=== PATIENT | female | born 1970 | race Caucasian/White ===

== ENCOUNTER 2017-09-05 09:02 | Outpatient (CLI) | payer OTHER | END 2017-09-05 09:03 | disposition home or self-care (01) | LOC: BICMAMMO 09:02 | PROVIDERS: ATTEND Family Medicine | DX: Z12.31 Encounter for screening mammogram for malignant neoplasm of breast (principal); M85.852 Other specified disorders of bone density and structure, left thigh; Z80.3 Family history of malignant neoplasm of breast; N63.20 Unspecified lump in the left breast, unspecified quadrant | CPT/HCPCS: 77063; 77067; 77080 ==

== ENCOUNTER 2017-09-11 12:53 | Outpatient (CLI) | payer OTHER | END 2017-09-11 12:54 | disposition home or self-care (01) | LOC: BICMAMMO 12:53 | PROVIDERS: ATTEND Family Medicine | DX: N63.20 Unspecified lump in the left breast, unspecified quadrant (principal); R92.1 Mammographic calcification found on diagnostic imaging of breast | CPT/HCPCS: 77066; G0279 ==

== ENCOUNTER 2018-03-25 08:12 | Outpatient (CLI) | payer OTHER ==
--- NOTE | 2018-03-25 11:08 | ULT ---
LEFT BREAST ULTRASOUND: HISTORY: This 47-year-old female returns for six-month followup of a mass in the left breast. COMPARISON: Digital mammography from 03/25/2018. Prior ultrasound examination from 09/11/2017. FINDINGS: There is a stable circumscribed, anechoic probable cyst in the left breast, at 12 o'clock, 3 cm from the nipple, measuring approximately 0.4 x 0.8 x 0.8 cm in size. This is stable from the prior ultras ound. The circumscribed mass in the 12 o'clock position of the left breast, seen on the mammogram, i s stable. IMPRESSION: BI-RADS category 3-Probably benign findings. Six-month follow-up bilateral diagnostic mammogram is recommended. If this mass remains stable, as e xpected, the patient could probably proceed to annual mammography, after the next six-month followup. POS: OFF
== END 2018-03-25 08:13 | disposition home or self-care (01) ==
LOC: BICMAMMO 08:12
PROVIDERS: ATTEND Family Medicine
DX: N63.20 Unspecified lump in the left breast, unspecified quadrant (principal); N63.10 Unspecified lump in the right breast, unspecified quadrant; Z80.3 Family history of malignant neoplasm of breast
CPT/HCPCS: G0279

== ENCOUNTER 2018-04-19 08:45 | Emergency (ER) | payer OTHER ==
[2018-04-19] MEDS ORDERED: Morphine 4 MG/ML VIAL ONE (09:10)
[2018-04-19 10:03] LABS: #Basophils 0.1 thou/uL (0.0-0.2); #Lymphocytes 0.7 thou/uL (1.20-3.40); #Monocytes 0.1 thou/uL (0.11-0.59); %Basophils 1.1 % (0.0-1.0); %Eosinophils 0.6 % (0.0-10.0); %Lymphocytes 12.1 % (21.0-51.0); %Monocytes 1.2 % (0.0-10.0); %Neutrophils 85.1 % (42.0-75.0); Hemoglobin 12.3 g/dL (12.0-16.0); MDiff Complete? YES; Macrocytosis SLIGHT = 6-15 cells (100X) (0-5/hpf); Mean Corpuscular HGB CONC 33.3 g/dL (32.0-36.0); Mean Corpuscular Hemoglobin 36.6 pg (27.0-31.0); Mean Platelet Volume 8.3 fL (7.4-10.4); Platelet Count 171 thou/uL (130-400); RBC Distribution Width 12.8 % (11.5-14.5); Red Blood Cell (RBC) Count 3.37 mill/uL (4.20-5.40); White Blood Cell (WBC) Count 5.9 thou/uL (4.8-10.8)
[2018-04-19] MEDS ORDERED: Ketorolac Tromethamine 30 MG/ML VIAL ONE (10:04)
[2018-04-19 10:07] LABS: ALT (SGPT) 14 U/L (8-55); AST (SGOT) 17 U/L (5-34); Albumin 4.2 g/dL (3.5-5.0); Alkaline Phosphatase 45 U/L (40-150); Anion Gap 12 mmol/L (10-20); BUN (Urea Nitrogen) 21 mg/dL (7.0-18.7); Bilirubin, Total 0.6 mg/dL (0.2-1.2); Calc. Creatinine Clearance 0 mL/min (70-130); Calcium 9.2 mg/dL (7.8-10.44); Carbon Dioxide 23 mmol/L (22-29); Chloride 105 mmol/L (98-107); Estimated GFR-MDRD 70; Globulin 2.8 g/dL (2.4-3.5); Glucose 99 mg/dL (70-105); Lipase 284 U/L (8-78); Potassium 3.7 mmol/L (3.5-5.1); Sodium 136 mmol/L (136-145)
--- NOTE | 2018-04-19 11:24 | ULT ---
PELVIC ULTRASOUND: Date: 04/19/18 HISTORY: Pelvic pain, right lower quadrant x4 hours. FINDINGS: Real-time imaging of the pelvis was performed both transabdominally, as well as with an endovaginal p robe. The uterus has been removed. Left ovary measures approximately 2.3 cm in length. This shows a small follicle. The right adnexa has two areas that are of slightly different echogenicity. Both are equal in size. T he adnexal region measures 2.0 x 5.3 cm in size. There is one area which has typical small follicles. The other area is of lower attenuation and I am no entirely certain it is truly a portion of the ova ry. DOPPLER EVALUATION WITH SPECTRAL ANALYSIS: Normal flow is shown to the ovaries. IMPRESSION: 1. Enlarged right adnexa. The area has two areas that are of slightly different echogenicity, one mo re typical in appearance for ovary and does show follicles. The other is more homogeneous and of slig htly decreased echogenicity. It could be a portion of an enlarged ovary or could be some type of para dnexal mass. It is a well-defined density and does not appear to represent fluid, and does not have a n appearance of a hydrosalpinx. POS: [facility]
[2018-04-19 12:13] LABS: Bilirubin Negative (Negative); Blood, Urine Negative (Negative); Clarity CLOUDY (Clear); Glucose, Urine (Dipstick) Negative (Negative); Leukocyte Negative (Negative); Nitrite Negative (Negative); Protein, Urine (Dipstick) Negative (Neg-Trace); Specific Gravity, Urine 1.044 (1.002-1.036); Urobilinogen 0.2 mg/dL (0.2-1.0)
[2018-04-19 12:17] LABS: Pregnancy Test - Urine (BHCG) Negative (Negative); Pregu Control Background? CLEAR/WHITE (CLR/WHITE); Pregu Control Bar Appear? YES (CONTROL BAR); Specific Gravity 1.044 (1.002-1.036)
--- NOTE | 2018-04-19 13:20 | CT ---
CT OF ABDOMEN AND PELVIS PERFORMED WITH CONTRAST ENHANCEMENT: Date: 04/19/18 HISTORY: Abdominal pain x2 hours. History of ulcerative colitis, which has been in remission for 12 years. FINDINGS: The lung bases are clear of infiltrates. There is some linear scarring in the lingula. The liver, spleen, pancreas, and gallbladder regions appear unremarkable. Right and left adrenal glands, and right and left kidneys are normal in size. No significant periaort ic or mesenteric adenopathy is appreciated. There is marked lack of intra-abdominal fat, which makes assessment more difficult for any bowel wall findings, but I do not see any signs of obstruction. The re is a moderate amount of stool present within the colon. CT of pelvis was performed with contrast enhancement. A moderate amount of stool is seen in the recto sigmoid region. Lack of intra-abdominal fat makes it very difficult to evaluate for appendicitis, but I do not see any definite features of appendicitis. There are what appear to be follicles involving the adnexal regions. IMPRESSION: 1. Lack of intra-abdominal fat makes it very difficult to evaluate the appendix. The appendix is not definitely seen. There is one structure which may be the appendix, possibly a small amount of air wi thin it. It measures in the 7-[address] definite [address] features that would suggest appendicitis. 2. Findings that would indicate constipation. POS: [facility]
[2018-04-19] MEDS ORDERED: Iopamidol 370 76% 50 ML VIAL FS ONE (16:34)
[2018-04-19] MEDS ORDERED: ISOVUE-370 76%-LOCM 1 ML ONE (16:34)
== END 2018-04-19 12:34 | disposition home or self-care (01) ==
LOC: ERS 08:45
DX: R10.31 Right lower quadrant pain (principal); F32.9 Major depressive disorder, single episode, unspecified; Z79.899 Other long term (current) drug therapy
CPT/HCPCS: 36415; 74177; 76856; 80053; 81003; 81025; 83690; 85025; 96361; 96374; 96375; J1885; J2270; Q9966; Q9967

== ENCOUNTER 2018-11-18 09:02 | Outpatient (CLI) | payer OTHER ==
--- NOTE | 2018-11-18 12:17 | BD ---
DEXA BONE DENSITY STUDY: Date: 11/18/18 HISTORY: Other disorders of bone density and structure, unspecified. FINDINGS: Lumbar Spine: BMD (g/cm2) L1 0.829 T-Score: -1.5 L2 0.951 T-Score: -0.7 L3 1.018 T-Score: -0.6 L4 0.912 T-Score: -1.4 Total 0.933 T-Score: -1.1 Left Femoral Neck: 0.648 T-Score: -1.8 Total Femur: 0.876 T-Score: -0.5 IMPRESSION: 1. Osteopenia of the lumbar spine and left femoral neck. 2. The 10 year fracture risk for a major osteoporotic fracture is 7.1% and for a hip fracture is 0.9 %. These fracture probabilities are calculated for an untreated patient. POS: OFF
== END 2018-11-18 09:03 | disposition home or self-care (01) ==
LOC: BICMAMMO 09:02
PROVIDERS: ATTEND Family Medicine
DX: M85.89 Other specified disorders of bone density and structure, multiple sites (principal)
CPT/HCPCS: 77080

== ENCOUNTER 2019-01-07 08:45 | Day surgery (SDC) | payer OTHER ==
--- NOTE | 2019-01-07 12:10 | OP ---
DATE OF PROCEDURE: 01/07/2019 PROCEDURE PERFORMED: Colonoscopy with biopsy. PREMEDICATION: Given by Anesthesiology Department. PREPROCEDURE DIAGNOSES: High-risk colon cancer surveillance. History of left-sided ulcerative colitis for more than 15 years. POSTPROCEDURE DIAGNOSES: 1. Visually normal colon exam. 2. Status post four biopsies every 10 cm for surveillance. DESCRIPTION OF PROCEDURE: Written consents were obtained prior to procedure. After adequate sedation, rectal exam was performed was normal. The endoscope was advanced to the cecum. The quality of the bowel prep was good. The cecum, ascending colon, hepatic flexure, transverse colon, splenic flexure, descending colon, and rectosigmoid colon all appeared normal. Four-quadrant biopsies were obtained every 10 cm with cold forceps. Retroflexion in the rectal vault was normal. The patient tolerated the procedure well. ASSESSMENT: 1. Normal mucosa in the entire colon exam. 2. Status post segmental biopsies. RECOMMENDATION: 1. Await biopsy results. 2. Repeat colonoscopy for surveillance based on pathology result. Job ID: [id number]
== END 2019-01-07 13:00 | disposition home or self-care (01) ==
LOC: SDC 08:45
PROVIDERS: ATTEND Internal Medicine Gastroenterology
PROC: 0DBE8ZX Excision of Large Intestine, Via Natural or Artificial Opening Endoscopic, Diagnostic (ICD-10-PCS; principal; 2019-01-07)
PROC: 0DBH8ZX Excision of Cecum, Via Natural or Artificial Opening Endoscopic, Diagnostic (ICD-10-PCS; principal; 2019-01-07)
DX: Z12.11 Encounter for screening for malignant neoplasm of colon (principal); Z79.899 Other long term (current) drug therapy
CPT/HCPCS: 88305

== ENCOUNTER 2019-10-14 12:52 | Outpatient (CLI) | payer OTHER ==
--- NOTE | 2019-10-14 13:57 | MMO ---
Bilateral MAMMO Bilat Screen [facility]. CLINICAL HISTORY: Patient is 49 years old and is seen for screening. The patient has the following family history of breast cancer: mother, at age 65. The patient has no personal history of cancer. VIEWS: The views performed were: bilateral craniocaudal with tomosynthesis and bilateral mediolateral oblique with tomosynthesis. FILMS COMPARED: The present examination has been compared to prior imaging studies performed at [facility] on 09/11/2017, 03/25/2018 and 10/14/2018. This study has been interpreted with the assistance of computer-aided detection. MAMMOGRAM FINDINGS: The breasts are extremely dense, which may lower the sensitivity of mammography. Benign calcifications are noted bilaterally. Nodularity is stable. There are no suspicious masses, suspicious calcifications, or new areas of architectural distortion. IMPRESSION: THERE IS NO MAMMOGRAPHIC EVIDENCE OF MALIGNANCY. A ROUTINE FOLLOW-UP MAMMOGRAM IN 1 YEAR IS RECOMMENDED. THE RESULTS OF THIS EXAM WERE SENT TO THE PATIENT. ACR BI-RADS Category 2 - Benign finding MAMMOGRAPHY NOTE: 1. A negative mammogram report should not delay a biopsy if a dominant of clinically suspicious mass is present. 2. Approximately 10% to 15% of breast cancers are not detected by mammography. 3. Adenosis and dense breasts may obscure an underlying neoplasm. Reported by: JULIA AGUILERA MD Electonically Signed: [id number]
== END 2019-10-14 12:53 | disposition home or self-care (01) ==
LOC: BICMAMMO 12:52
PROVIDERS: ATTEND Obstetrics & Gynecology
DX: Z12.31 Encounter for screening mammogram for malignant neoplasm of breast (principal); Z80.3 Family history of malignant neoplasm of breast
CPT/HCPCS: 77063; 77067

== ENCOUNTER 2019-12-31 16:57 | Day surgery (SDC) | payer OTHER ==
[~2019-12-31 16:57] MED LIST: Dexamethasone 20 MG/5 ML VIAL ONE; Glycopyrrolate 0.2 MG/ML 5 ML SYRINGE ONE; Lidocaine 1% PF 5 ML VIAL ONE; Ondansetron PF 4 MG/2 ML Vial ONE; PHENYLEPHRINE-NS 100 MCG/ML 10 ML SYRINGE ONE; PROPOFOL 200 MG/20 ML VIAL ONE; Rocuronium Bromide 10 MG/ML (10ML VIAL) ONE
[2019-12-31] MEDS ORDERED: Fentanyl 100 MCG/2 ML VIAL ONE ×2 (17:02→19:18)
[2019-12-31] MEDS ORDERED: Boostrix 0.5 ML VIAL ONE (17:26)
[2019-12-31] MEDS ORDERED: Ketorolac Tromethamine 30 MG/ML VIAL ONE (17:46)
--- NOTE | 2019-12-31 17:51 | RAD ---
LEFT HAND THREE VIEWS: 12/31/19 HISTORY: Dog bite. There is soft tissue injury and tuft fracture involving the distal phalanx of the ring finger. IMPRESSION: Soft tissue amputation and a tuft fracture involving the distal phalanx of the ring finger. POS: MIN
[2019-12-31 18:31] LABS: #Eosinphils 0.2 thou/uL (0.0-0.7); #Lymphocytes 1.2 thou/uL (1.20-3.40); #Monocytes 0.3 thou/uL (0.11-0.59); %Basophils 0.6 % (0.0-1.0); %Eosinophils 2.3 % (0.0-10.0); %Monocytes 3.5 % (0.0-10.0); %Neutrophils 77.6 % (42.0-75.0); Hemoglobin 11.8 g/dL (12.0-16.0); Mean Corpuscular Hemoglobin 35.9 pg (27.0-31.0); Mean Platelet Volume 8.2 fL (7.4-10.4); Platelet Count 193 thou/uL (130-400); RBC Distribution Width 12.6 % (11.5-14.5); Red Blood Cell (RBC) Count 3.27 mill/uL (4.20-5.40); White Blood Cell (WBC) Count 7.7 thou/uL (4.8-10.8)
[2019-12-31] MEDS ORDERED: Bacitracin Zinc Ointment 30 gm TUBE ONE (18:52)
[2019-12-31] MEDS ORDERED: Sodium Chloride 0.9% 10 ML ONE (18:52)
[2019-12-31] MEDS ORDERED: Bupivacaine PF 0.5% 30 ML VIAL ONE (18:52)
[2019-12-31 18:56] LABS: ALT (SGPT) 16 U/L (8-55); AST (SGOT) 21 U/L (5-34); Albumin 3.8 g/dL (3.5-5.0); Alkaline Phosphatase 66 U/L (40-110); Anion Gap 13 mmol/L (10-20); BUN (Urea Nitrogen) 23 mg/dL (9.8-20.1); Bilirubin, Total 0.4 mg/dL (0.2-1.2); Calc. Creatinine Clearance 0 mL/min (70-130); Calcium 8.8 mg/dL (7.8-10.44); Carbon Dioxide 24 mmol/L (22-29); Chloride 107 mmol/L (98-107); Estimated GFR-MDRD 61; Globulin 3.1 g/dL (2.4-3.5); Glucose 120 mg/dL (70-105); Potassium 4.4 mmol/L (3.5-5.1); Protein, Total 6.9 g/dL (6.0-8.3); Sodium 140 mmol/L (136-145)
[2019-12-31] MEDS ORDERED: Midazolam HCl 2 mg/2 ml Vial ONE (19:18)
[2019-12-31 19:27] LABS: BHCG - Serum Negative (NEGATIVE); Pregs Control Background? CLEAR/WHITE (CLR/WHITE); Pregs Control Bar Appear? YES (CONTROL BAR)
--- NOTE | 2019-12-31 21:32 | RAD ---
LEFT RING FINGER: Date: 12/31/2019 HISTORY: Finger debridement. FINDINGS: Soft tissue injury and deformity to the tuft of the ring finger is again noted, seen on the C-arm vie ws. IMPRESSION: Debridement of distal aspect of ring finger. POS: MIN
[2019-12-31] MEDS ORDERED: Promethazine HCl 25 MG/ML VIAL SLOW IVP PRN (21:42)
[2019-12-31] MEDS ORDERED: Promethazine HCl 25 MG/ML VIAL IM PRN ×3 (21:42→22:26)
[2019-12-31] MEDS ORDERED: Ondansetron HCl/PF 4 MG/2 ML Vial IVP PRN (21:42)
[2019-12-31] MEDS ORDERED: Ondansetron PF 4 MG/2 ML Vial IV PRN (22:01)
[2019-12-31] MEDS ORDERED: Acetaminophen 325 MG TAB PO PRN ×2 (22:01→22:26)
[2019-12-31] MEDS ORDERED: Morphine 2 MG/ML VIAL SLOW IVP PRN ×2 (22:01→22:26)
[2019-12-31] MEDS ORDERED: traMADol HCl 50 MG TAB PO PRN ×2 (22:01→22:26)
[2019-12-31] MEDS ORDERED: HYDROcodone/Acetaminophen 5/325 mg Tablet PO PRN ×2 (22:01→22:26)
[2019-12-31] MEDS ORDERED: Ketorolac Tromethamine 30 MG/ML VIAL IVP PRN ×2 (22:04→22:26)
[2019-12-31] MEDS ORDERED: Meperidine HCl/PF 25 MG/ML VIAL IM PRN ×2 (22:04→22:26)
[2019-12-31] MEDS ORDERED: Sodium Chloride 0.9% 100 ML IV SCH (22:15)
[2019-12-31] MEDS ORDERED: TETANUS AND DIPHTHERIA TOX/PF 0.5 ML DISP.SYRIN IM SCH ×2 (22:15)
[2019-12-31] MEDS ORDERED: Communication Order-Pharmacy FS PRN (22:15)
[2019-12-31] MEDS ORDERED: Communication Order-Pharmacy FS SCH (22:15)
[2019-12-31] MEDS ORDERED: Ondansetron PF 4 MG/2 ML Vial SLOW IVP PRN (22:26)
[2019-12-31] MEDS: Sodium Chloride 0.9% 100 ML IV SCH ×2 (23:00)
[2020-01-01] MEDS: Vancomycin HCl 750 MG in Sodium Chloride 0.9% 250 ML 250 ML IVPB SCH ×2 (01:00→12:04)
[2020-01-01] MEDS: Sodium Chloride 0.9% 1,000 ML IV SCH ×2 (01:19→09:29)
[2020-01-01 01:31] VITALS: BMI 20.5
--- NOTE | 2020-01-01 01:57 | OP ---
DATE OF PROCEDURE: 12/31/2019 PREOPERATIVE DIAGNOSIS: Left ring finger open fracture with amputation, distal 1/3 of the digit. POSTOPERATIVE DIAGNOSES: 1. Left ring finger open fracture with amputation, distal 1/3 of the digit with markedly comminuted fracture at the ring finger as well as contamination that was moderate necessitating wound dressed open. 2. Ring, middle finger, 5 mm bite wound palmar and dorsal with the dorsal wound communicating with the joint just ulnar to the extensor mechanism. PROCEDURE PERFORMED: At the middle finger: 1. Debridement of wounds, palmar and dorsal. 2. Digital nerve neuroplasty. 3. Debridement of open joint injury at the middle finger, left. At the ring finger, left: 1. Debridement of material associated with open fracture. 2. Open reduction with open treatment of distal phalanx of four-part comminuted fracture. 3. Nail bed repair. 4. Debridement of wound. 5. C-arm supervision. INDICATIONS: Dog bite wound while she is breaking up the classic cat dog fighting counter. She was bitten by the dog. DESCRIPTION OF PROCEDURE: The patient had time-out done. We initially had consented her for the ring finger and the ulnar, but the middle finger was cleaned from blood show two 5 mm lacerations. There were no joint, so they had to be explored. First, we injected both fingers with 10 mL 0.5% Marcaine without epinephrine for local anesthetic. Then, they were able to perform debridement of first the ring finger using tenotomy scissors, curette, Adson, 3 L Pulsavac pressure, normal saline with antibiotics inside and we could evaluate the fracture. We had to extend the nail bed. We had an exposed nail bed in the junction of the germinal and sterile matrix, the fracture fragment contained the nailbed was flipped almost 90 degrees and we had debrided that with a curette and then irrigated and finally reduced once irrigation was accomplished. It would not hold as the K-wires were small, so we used other technique and repaired the nailbed to hold the fracture in place with a 5-0 instead of the usual 6-0 chromic gut. Once we had done this, we then finished debridement of the skin and we found enough particles of contamination. We did not want to place the skin graft or final closure of the wound on the ring finger at this time at the stage of the care and debridement. Next, we turned attention to the middle finger and extended both incisions 5 mm distal and proximal. On the palmar incision, we visualized neurovascular bundle. It was intact and no digital nerve rami was lacerated. Then, in the dorsum, we saw 2 marked size hole in the joint capsule between the extensor mechanism of the collateral and here that communicated with the joint. We the area and irrigated this with 3 L normal saline and Pulsavac pressure. Once this was done, we deflated the tourniquet, given a total time of 27 minutes. We obtained hemostasis. We irrigated each wound one more time, but at this point, we felt it would better to perform a separate debridement 3 to 5 days later for final closure and we realized that the pulp space wound on the partially amputated ring finger tips was 1 cm wide and 4 to 5 mm in height. The patient had the tourniquet deflated, excellent hemostasis, excellent color to all the palmar tissue at the tips of all digits. Bacitracin, Adaptic, 4x4, finger tube gauze, and a metal finger splint were loosely applied with a loosely applied Coban around and the patient left the operating room without evidence of anesthetic or operative complication. Job ID: [id number]
[2020-01-01] MEDS ORDERED: Vancomycin 1 GM in Premix Bag 1 BAG IVPB SCH (09:00)
[2020-01-01] MEDS ORDERED: Aspirin 81 mg Enteric Coated Tablet PO SCH ×2 (09:00)
[2020-01-01 12:01] VITALS: BP 94/55; TEMP 98.3
[2020-01-01 12:56] LABS: SARS-CoV-2 MS2 Positive; SARS-CoV-2 N Gene Negative; SARS-CoV-2 S Gene Negative; SARS-CoV-2 by NAA Not Detected (NotDetected); SARS-CoV-2 orf1ab Negative
--- NOTE | 2020-01-02 13:28 | EKG ---
Test Reason : Blood Pressure : / mmHG Vent. Rate : 091 BPM Atrial Rate : 091 BPM P-R Int : 134 ms QRS Dur : 074 ms QT Int : 356 ms P-R-T Axes : 074 005 017 degrees QTc Int : 437 ms Normal sinus rhythm Possible Left atrial enlargement Low voltage QRS Borderline ECG Confirmed by RENALDO MALDONADO DO ([id number]), publications editor CHRISTIANO VALDIVIA ([id number]) on 01/02/2020 1:28:19 PM Referred By: Confirmed By:RENALDO MALDONADO DO
== END 2020-01-01 15:25 | disposition home or self-care (01) ==
LOC: ERS 16:57 → SDC/OP 20:37 → ERS 20:37 → SURG A 22:01 → SDC/OP 01-01 15:25
PROVIDERS: ATTEND Orthopaedic Surgery Hand Surgery
PROC: 0HBQXZZ Excision of Finger Nail, External Approach (ICD-10-PCS; principal; 2019-12-31)
PROC: 01N50ZZ Release Median Nerve, Open Approach (ICD-10-PCS; principal; 2019-12-31)
PROC: 0PBV0ZZ Excision of Left Finger Phalanx, Open Approach (ICD-10-PCS; principal; 2019-12-31)
PROC: 0HQQXZZ Repair Finger Nail, External Approach (ICD-10-PCS; principal; 2019-12-31)
PROC: 0PSV04Z Reposition Left Finger Phalanx with Internal Fixation Device, Open Approach (ICD-10-PCS; principal; 2019-12-31)
DX: S62.635B Displaced fracture of distal phalanx of left ring finger, initial encounter for open fracture (principal); S62.603A Fracture of unspecified phalanx of left middle finger, initial encounter for closed fracture; F32.9 Major depressive disorder, single episode, unspecified; Z79.899 Other long term (current) drug therapy; Z20.828 Contact with and (suspected) exposure to other viral communicable diseases; W54.0XXA Bitten by dog, initial encounter
CPT/HCPCS: 36415; 76000; 80053; 84703; 85025; 87635; 90471; 90715; 93005; 96365; 96375; J0690; J1100; J1885; J2250; J2405; J2704; J3010; J3370; J3490; J7050; S0020; U0003

== ENCOUNTER 2020-01-05 10:01 | Day surgery (SDC) | payer OTHER ==
[2020-01-04 13:38] VITALS: BMI 21.2
[~2020-01-05 10:01] MED LIST changes: -Glycopyrrolate 0.2 MG/ML 5 ML SYRINGE ONE; -PHENYLEPHRINE-NS 100 MCG/ML 10 ML SYRINGE ONE; -Rocuronium Bromide 10 MG/ML (10ML VIAL) ONE
[2020-01-05] MEDS ORDERED: Fentanyl 100 MCG/2 ML VIAL ONE (13:23)
[2020-01-05] MEDS ORDERED: Midazolam HCl 2 mg/2 ml Vial ONE (13:23)
[2020-01-05] MEDS ORDERED: Sodium Chloride 0.9% 10 ML ONE (13:24)
[2020-01-05] MEDS ORDERED: Bacitracin Zinc Ointment 30 gm TUBE ONE (13:24)
[2020-01-05] MEDS ORDERED: Mineral Oil Sterile 10ML 10 ML UDCUP ONE ×2 (13:24→13:27)
[2020-01-05] MEDS ORDERED: Thrombin 5000 UNITS/5 ML VIAL ONE (13:24)
[2020-01-05] MEDS ORDERED: Bupivacaine PF 0.5% 30 ML VIAL ONE (14:14)
[2020-01-05] MEDS ORDERED: Bupivacaine 0.25% HCL 30 ML VIAL ONE (14:14)
--- NOTE | 2020-01-05 23:16 | OP ---
DATE OF PROCEDURE: 01/05/2020 PREOPERATIVE DIAGNOSIS: Middle finger wound with possible tendon involvement and ring finger wound with full-thickness skin loss and tendon involvement. POSTOPERATIVE DIAGNOSES: Middle finger wound with possible tendon involvement and ring finger wound with full-thickness skin loss and tendon involvement. PROCEDURES PERFORMED: 1. Middle finger debridement of wound. 2. Debridement of joint middle finger distal phalangeal joint. 3. Repair of small zone 1 extensor tendon laceration and closure of 5 cm wound at the ring finger. a. Debridement of wound. b. Application of 1.5 x 1.0 cm full-thickness skin graft. ESTIMATED BLOOD LOSS: 10 cc. TOURNIQUET TIME: 10 minutes. FINDINGS: No gross infection or exposed bone. DESCRIPTION OF PROCEDURE: After successful general endotracheal anesthesia, the limb was prepped and draped. We then gave 10 mL block at the base of both the ring finger and the middle finger left side metacarpals and at the antecubital fossa with anticipation of grafting. First, we approached the middle finger wound. We debrided some denuded fat. The edges of the wound were measured to be 1.5 x 1 cm. Then, we noticed that the nail bed sutures remained intact. We then inspected the middle finger and were able to open the wounds, visualized the joint, debride the joint of any denuded fat, and irrigated it with 2000 mL of normal saline with antibiotics inside. We closed the palmar wound and dorsally interrupted 4-0 nylon and then we harvested a full-thickness skin graft, 1.5 x 1 cm from the antecubital fossa and closed this primarily with a running 4-0 Monocryl and then closed the epidermis with Dermabond. The patient then had the wounds covered with bulky dressings, as well as the donor site with bacitracin, Adaptic, and a bolster on the skin grafted digit and soft dressings with Mohamud wrap up to the level of the fingers, was placed finger tube gauze and Coban, had excellent circulation. Job ID: [id number]
== END 2020-01-05 17:25 | disposition home or self-care (01) ==
LOC: SDC 10:01
PROVIDERS: ATTEND Orthopaedic Surgery Hand Surgery
PROC: 0HRGXK3 Replacement of Left Hand Skin with Nonautologous Tissue Substitute, Full Thickness, External Approach (ICD-10-PCS; principal; 2020-01-05)
PROC: 0JBK0ZZ Excision of Left Hand Subcutaneous Tissue and Fascia, Open Approach (ICD-10-PCS; principal; 2020-01-05)
DX: S68.625A Partial traumatic transphalangeal amputation of left ring finger, initial encounter (principal); S66.325A Laceration of extensor muscle, fascia and tendon of left ring finger at wrist and hand level, initial encounter; S62.633B Displaced fracture of distal phalanx of left middle finger, initial encounter for open fracture; K51.90 Ulcerative colitis, unspecified, without complications; F32.9 Major depressive disorder, single episode, unspecified; E78.5 Hyperlipidemia, unspecified; Z79.83 Long term (current) use of bisphosphonates; Z79.899 Other long term (current) drug therapy; W54.0XXA Bitten by dog, initial encounter
CPT/HCPCS: J0690; J1100; J2250; J2405; J2704; J3010; J3490; S0020

== ENCOUNTER 2021-07-12 08:35 | Outpatient (CLI) | payer BC | END 2021-07-12 08:36 | disposition home or self-care (01) | LOC: BICMAMMO 08:35 | PROVIDERS: ATTEND Family Medicine | DX: Z12.31 Encounter for screening mammogram for malignant neoplasm of breast (principal); Z80.3 Family history of malignant neoplasm of breast | CPT/HCPCS: 77063; 77067 ==